=== PATIENT | female | born 1950 | race Caucasian/White ===

== ENCOUNTER 2022-07-29 00:41 | Emergency (ER) | payer MEDICARE ==
[~2022-07-29] VITALS: Ht 170.2 cm; Wt 68.0 kg
[2022-07-29 01:22] VITALS: BP 125/75
== END 2022-07-29 06:56 | disposition left against medical advice (07) ==
LOC: ER 00:41
DX: Z53.21 Procedure and treatment not carried out due to patient leaving prior to being seen by health care provider (principal)